=== PATIENT | female | born 1955 | race Caucasian/White ===

== ENCOUNTER 2018-08-04 19:48 | Emergency (ER) | payer OTHER ==
[~2018-08-04] VITALS: Ht 157.5 cm; Wt 122.5 kg
[2018-08-04 20:01] VITALS: BP 146/65
[2018-08-04] MEDS ORDERED: ORE25 PO (20:26)
[2018-08-04] MEDS ORDERED: BENA40TA PO (20:26)
[2018-08-04] MEDS ORDERED: GLIP10TE PO (20:26)
[2018-08-04] MEDS ORDERED: INSU100S22 SUBQ (20:26)
[2018-08-04] MEDS ORDERED: SIMV40TA1 PO (20:26)
[2018-08-04] MEDS ORDERED: OMEP20TC12 PO (20:26)
[2018-08-04] MEDS ORDERED: GABA300C PO (20:26)
[2018-08-04] MEDS ORDERED: METO100T14 PO (20:26)
[2018-08-04] MEDS ORDERED: MEX2.5 PO (20:26)
[2018-08-04] MEDS ORDERED: FURO-570 PO (20:26)
[2018-08-04] MEDS ORDERED: POTA10TE30 PO (20:26)
[2018-08-04] MEDS ORDERED: METF500T PO (20:26)
[2018-08-04] MEDS ORDERED: INSU100I3 SQ (20:26)
[2018-08-04] MEDS ORDERED: MORPHINE SULFATE 4 MG/ML SYR IVP ONE (21:20)
[2018-08-04] MEDS ORDERED: ONDANSETRON 4 MG/2 ML VIAL IVP ONE (21:20)
[2018-08-04 22:03] LABS: BASOPHILS % (AUTO) 0.3 % (0.0-2.0); EOSINOPHILS % (AUTO) 0.2 % (0.0-4.0); HEMATOCRIT 39.4 % (36-48); HEMOGLOBIN 12.7 g/dL (12.0-16.0); LYMPHOCYTES # (AUTO) 1.5 K/uL (2.5-16.5); LYMPHOCYTES % (AUTO) 11.5 % (20.5-51.1); MEAN CORPUSCULAR HEMOGLOBIN 27 pg (27-31); MEAN CORPUSCULAR HGB CONC 32 g/dL (33-37); MEAN CORPUSCULAR VOLUME 83.5 fL (80-94); MONOCYTES # (AUTO) 0.7 K/uL (0.8-1.0); MONOCYTES % (AUTO) 5.4 % (1.7-9.3); NEUTROPHILS # (AUTO) 10.6 K/uL (1.8-7.7); NEUTROPHILS % (AUTO) 82.6 % (42.2-75.2); PLATELET COUNT (AUTO) 255 K/uL (140-450); RED BLOOD CELL COUNT(AUTO) 4.72 MIL/uL (4.20-5.40); RED CELL DISTRIBUTION WIDTH 15.3 % (11.6-13.7); WHITE BLOOD COUNT (AUTO) 12.8 K/uL (4.8-10.8)
[2018-08-04 22:13] LABS: ANION GAP 9.7 (8-16); CARBON DIOXIDE 34.7 mmol/L (21-32); CREATININE 1.4 mg/dL (0.6-1.3); POTASSIUM 3.4 mmol/L (3.5-5.1)
[2018-08-04 22:19] LABS: ALBUMIN 3.3 g/dL (3.4-5.0); TOTAL BILIRUBIN 0.6 mg/dL (0.0-1.0)
[2018-08-04] MEDS ORDERED: KETOROLAC 30 MG/ML VIAL IVP ONE (23:00)
[2018-08-05 00:39] VITALS: BP 149/61
== END 2018-08-05 00:39 | disposition home or self-care (01) ==
LOC: MED 19:48
DX: M25.511 Pain in right shoulder (principal); E11.65 Type 2 diabetes mellitus with hyperglycemia; Z79.899 Other long term (current) drug therapy; Z79.84 Long term (current) use of oral hypoglycemic drugs
CPT/HCPCS: 36415; 71045; 73060; 80053; 82550; 82553; 82948; 83690; 83880; 84484; 85025; 93005; 93970; 96374; 96375; 99284; J1885; J2270; J2405; Q0092

== ENCOUNTER 2018-09-25 11:31 | Emergency (ER) | payer OTHER ==
[~2018-09-25] VITALS: Ht 154.9 cm; Wt 120.7 kg
[~2018-09-25 11:31] MED LIST: BENA40TA PO; FURO-570 PO; GABA300C PO; GLIP10TE PO; INSU100I3 SQ; INSU100S22 SUBQ; METF500T PO; METO100T14 PO; MEX2.5 PO; OMEP20TC12 PO; ORE25 PO; POTA10TE30 PO; SIMV40TA1 PO
[2018-09-25 11:53] VITALS: BP 110/64
--- NOTE | 2018-09-25 12:02 | NUR ---
PATIENT WHEELCHAIR ASSISTED TO BED 7.
--- NOTE | 2018-09-25 12:05 | NUR ---
BIB DTR WITH C/O BODY PAIN , 10/10 ACHING BODY PAIN, PT STATES" SHE IS IN ALOT OF PAIN DUE TO NOT BEING ABLE TO TAKE NAPROSYN ANYMORE BECAUSE OF KIDNEY DAMAGE. DENIES N/V/D; SKIN IS PINK/WARM/DRY; AAOX4; LUNGS CLEAR BL; HR EVEN AND REGULAR; PT DENIES ANY FEVER, CP, SOB, OR COUGH AT THIS TIME; VSS; PATIENT POSITIONED FOR COMFORT; HOB ELEVATED; BEDRAILS UP X2; BED DOWN. ER MD MADE AWARE OF PT STATUS.
[2018-09-25] MEDS ORDERED: MORPHINE SULFATE 4 MG/ML SYR IM ONE (12:10)
--- NOTE | 2018-09-25 13:30 | NUR ---
NO COMPLAINTS OR NEEDS STATED AT THIS TIME.
[2018-09-25] MEDS ORDERED: CEPHALEXIN 500 MG CAP PO ONE (15:05)
[2018-09-25 15:17] VITALS: BP 110/64
--- NOTE | 2018-09-25 15:18 | NUR ---
Patient discharged with v/s stable. Written and verbal after care instructions given and explained. Patient alert, oriented and verbalized understanding of instructions. Wheelchair assisted by daughter . All questions addressed prior to discharge. ID band removed. Patient advised to follow up with PMD. Rx of keflex, acetaminophen given. Patient educated on indication of medication including possible reaction and side effects. Opportunity to ask questions provided and answered.
== END 2018-09-25 15:18 | disposition home or self-care (01) ==
LOC: MED 11:31
DX: N39.0 Urinary tract infection, site not specified (principal); M25.551 Pain in right hip; E11.9 Type 2 diabetes mellitus without complications; I10 Essential (primary) hypertension; Z79.4 Long term (current) use of insulin; Z79.899 Other long term (current) drug therapy
CPT/HCPCS: 81002; 87086; 96372; 99283; J2270

== ENCOUNTER 2018-10-12 14:33 | Inpatient (IN) | payer OTHER ==
[~2018-10-12] VITALS: Ht 172.7 cm; Wt 90.7 kg
[2018-10-12 14:40] VITALS: BP 102/51
--- NOTE | 2018-10-12 14:42 | NUR ---
PATIENT BIBA TO BED 9
[2018-10-12] MEDS ORDERED: NACL 0.9% 500 ML IV SCH (15:02)
--- NOTE | 2018-10-12 15:02 | NUR ---
BIBA. C/O PROGRESSIVE WEAKNESS AND INCREASING BODY PAIN OVER THE LAST 2 MONTHS. LAST 2 WEEKS HAS BEEN THE WORST. FAMILY STATES SHE HAS NOT GOTTEN OUT OF BED SINCE SUNDAY. HX: DM; HTN; KIDNEY DISEASE; GOUT RX: GABPENTIN; INSULIN
[2018-10-12 15:30] LABS: BASOPHILS # (AUTO) 0.1 K/uL (0.00-0.22); BASOPHILS % (AUTO) 0.4 % (0.0-2.0); EOSINOPHILS # (AUTO) 0.1 K/uL (0-0.4); EOSINOPHILS % (AUTO) 0.4 % (0.0-4.0); HEMATOCRIT 28.3 % (36-48); HEMOGLOBIN 9.1 g/dL (12.0-16.0); LYMPHOCYTES # (AUTO) 1.2 K/uL (2.5-16.5); LYMPHOCYTES % (AUTO) 7.2 % (20.5-51.1); MEAN CORPUSCULAR HEMOGLOBIN 27 pg (27-31); MEAN CORPUSCULAR HGB CONC 32 g/dL (33-37); MEAN CORPUSCULAR VOLUME 84.4 fL (80-94); MONOCYTES # (AUTO) 1.2 K/uL (0.8-1.0); MONOCYTES % (AUTO) 7.2 % (1.7-9.3); NEUTROPHILS # (AUTO) 13.6 K/uL (1.8-7.7); NEUTROPHILS % (AUTO) 84.8 % (42.2-75.2); PLATELET COUNT (AUTO) 502 K/uL (140-450); RED BLOOD CELL COUNT(AUTO) 3.35 MIL/uL (4.20-5.40); RED CELL DISTRIBUTION WIDTH 14.7 % (11.6-13.7); WHITE BLOOD COUNT (AUTO) 16.1 K/uL (4.8-10.8)
--- NOTE | 2018-10-12 15:33 | NUR ---
PATIENT PLACED ON BED GOLD WITH ASSISTANCE OF ROBBY LEMUS.
--- NOTE | 2018-10-12 15:38 | NUR ---
PATIENT TAKEN OFF BED GOLD, NO URINE OR STOOL NOTED.
[2018-10-12] MEDS ORDERED: LEVOFLOXACIN 500 MG/D5W PREMIX 100 ML IV ONE (15:50)
--- NOTE | 2018-10-12 15:57 | NUR ---
RAD AT BEDSIDE.
[2018-10-12 16:20] LABS: PROTHROMBIN TIME 11.2 secs (10.8-13.4)
[2018-10-12 16:40] LABS: ALBUMIN 1.7 g/dL (3.4-5.0); ANION GAP 15.6 (8-16); CARBON DIOXIDE 27.6 mmol/L (21-32); CREATININE 1.7 mg/dL (0.6-1.3); POTASSIUM 4.2 mmol/L (3.5-5.1)
[2018-10-12] MEDS ORDERED: KETOROLAC 30 MG/ML VIAL IVP ONE (16:40)
--- NOTE | 2018-10-12 17:08 | NUR ---
STRAIGHT CATH PREFROMED AT BEDSIDE. PATIENT TOLERATED WELL. 450ML OF URINE COLLECTED. SENT SAMPLE TO LAB.
[2018-10-12 17:37] LABS: APPEARANCE,URINE CLEAR (CLEAR); BILIRUBIN,URINE NEGATIVE (NEGATIVE); BLOOD, URINE TRACE-I (NEGATIVE); COLOR,URINE YELLOW (YELLOW); LEUKOCYTE ESTERASE ,URINE NEGATIVE (NEGATIVE); NITRITE, URINE NEGATIVE (NEGATIVE); PH,URINE 5.5 (5.0-9.0); UGLUCOSE NEGATIVE (NEGATIVE)
[2018-10-12] MEDS ORDERED: PANTOPRAZOLE 40 MG INJ VIAL IVP ONE (17:55)
[2018-10-12] MEDS ORDERED: HYDR2TAB46 PO (18:31)
[2018-10-12] MEDS ORDERED: ALLO100T21 PO (18:31)
[2018-10-12] MEDS ORDERED: DOCU-299 PO (18:31)
[2018-10-12] MEDS ORDERED: INSU100S54 SC (18:31)
[2018-10-12] MEDS ORDERED: fentaNYL 0.05 MG/ML VIAL IVP ONE (18:40)
--- NOTE | 2018-10-12 19:15 | NUR ---
PT LYING IN BED, VSS
--- NOTE | 2018-10-12 20:50 | NUR ---
DUE MEDICATION ADMINISTER, PT TOLERATED WELL, NO DISTRESS NOTED, CALL LIGHT WITHIN REACH, WILL CONTINUE TO MONITOR. Addendum: 10/13/18 at 0319 by Arabella Landrum RN WRONG PT
[2018-10-12] MEDS ORDERED: ONDANSETRON 4 MG/2 ML VIAL IVP PRN (22:05)
--- NOTE | 2018-10-12 22:21 | NUR ---
Patient will be admitted to care of DR. NDIAYE. Admited to TELEMETRY. Will go to room 123B. Belongings list completed. Report to DIALLO ROSARIO. PT VSS
--- NOTE | 2018-10-12 22:21 | NUR ---
Pt report given to DIALLO ROSARIO. Transfer of care at this time.VSS
[2018-10-12 22:30] VITALS: BP 117/55
--- NOTE | 2018-10-12 22:30 | NUR ---
PT ARRIVED AT UNIT VIA GURNEY, REPORT RECEIVED FROM ED NURSE JOSLYN RN, PT ON ROOM AIR, NO SOB NOTED, IV TO R FA 22G PATENT, INTACT, SL, NO C/O PAIN AT THIS MOMENT, TRANSFERRED PT TO BED, TOLERATED WELL, V/S TAKEN WNL, MRSA SWAB TAKEN, ORIENT PT TO ROOM ,BED, CALL LIGHT, INITIAL ASSESSMENT DONE, ALL SAFETY PRECAUTION MET, CALL LIGHT WITHIN REACH, FAMILY AT BEDSIDE, WILL CONTINUE TO MONITOR.
[2018-10-12 23:04] LABS: PROTHROMBIN TIME 11.5 secs (10.8-13.4)
[2018-10-12] MEDS ORDERED: DEXTROSE 50% 50 ML SYR IVP PRN (23:35)
--- NOTE | 2018-10-12 23:45 | NUR ---
TALKED TO DR. PERALES REGARDING PT MEDICATIONS, STATED TO CONTINUE HOME MEDICATION COLACE, GABAPENTIN, GLIPIZIDE, METHOTREXATE, METOPROLOL, OMEPRAZOLE, SIMVASTATIN. TO RUN NS @50ML/HR, AND ONLY ONE BAG. TO ORDER LANTUS 15UNITS QHS, CHECK BLOOD GLUCOSE LEVEL ACHS AND AT 2AM, AND COVER WITH HUMALOG PER PROTOCOL, NORCO 5/325 Q8H PRN SEVERE PAIN, TOTAL CPK. WILL PUT IN ORDERS AND CONTINUE WITH ORDERS.
[2018-10-13] VITALS: BP 115/51
[2018-10-13] MEDS: NACL 0.9% 1,000 ML IV SCH ×2 (00:07→18:02)
--- NOTE | 2018-10-13 00:07 | NUR ---
IVF NS STARTED, PT TOLERATED WELL, NO DISTRESS NOTED, CALL LIGHT WITHIN REACH, WILL CONTINUE TO MONITOR.
[2018-10-13] MEDS ORDERED: PNEUMOCOCCAL VACCINE 23 MCG/0.5 ML VIAL IMVAC PRN (01:05)
[2018-10-13] MEDS ORDERED: INFLUENZA VIRUS VACCINE QUAD 0.5 ML SYR IMVAC PRN (01:05)
[2018-10-13] MEDS ORDERED: BLOOD GLUCOSE MONITORING 1 DEV DEV FS SCH ×2 (02:00→09:00)
--- NOTE | 2018-10-13 02:17 | NUR ---
CHECKED ON PT, PT SLEEPING, NO DISTRESS NOTED, CALL LIGHT WITHIN REACH, WILL CONTINUE TO MONITOR.
--- NOTE | 2018-10-13 03:40 | NUR ---
CHECKED ON PT, PT RESTING, V/S TAKEN, WNL, NO DISTRESS NOTED, CALL LIGHT WITHIN REACH, WILL CONTINUE TO MONITOR.
[2018-10-13 04:00] VITALS: BP 109/60
[2018-10-13] MEDS: BLOOD GLUCOSE MONITORING 1 DEV DEV FS SCH ×4 (05:36→21:43)
--- NOTE | 2018-10-13 07:22 | NUR ---
ENDORSED PT TO DAY SHIFT NURSE LIAM RN, PT STABLE, NO DISTRESS NOTED, CALL LIGHT WITHIN REACH
--- NOTE | 2018-10-13 07:23 | NUR ---
RECEIVED BEDSIDE REPORT FROM HISTORY PROFESSOR RN FOR CONTINUITY OF CARE. PT IN STABLE CONDITION. DENIES PAIN AND DISCOMFORT. NO S/S DISTRESS. RESPIRATIONS EVEN AND UNLABORED. HEART RHYTHM REGULAR. ACTIVE BS IN ALL QUADRANTS. ABDOMEN SOFT AND NON-DISTENDED. LLE 1+ PITTING EDEMA. SKIN INTACT. PT ON BEDREST. IV SITE PATENT AND ASYMPTOMATIC, INFUSING IVF PER MD ORDERS. PER HISTORY PROFESSOR RN, HAS ORDERED ONLY 1 BAG OF NS. ALL SAFETY PRECAUTIONS IN PLACE, WILL CONTINUE TO MONITOR. Addendum: 10/13/18 at 0857 by Maureen Landa Meng RN TEMP 100.0 F ORAL. PATIENT HAS 3 BLANKETS ON, REMOVED TWO BLANKETS.
[2018-10-13 07:49] LABS: BASOPHILS % (AUTO) 0.3 % (0.0-2.0); EOSINOPHILS # (AUTO) 0.1 K/uL (0-0.4); EOSINOPHILS % (AUTO) 0.6 % (0.0-4.0); HEMATOCRIT 26.5 % (36-48); HEMOGLOBIN 8.5 g/dL (12.0-16.0); LYMPHOCYTES # (AUTO) 1.2 K/uL (2.5-16.5); LYMPHOCYTES % (AUTO) 8.1 % (20.5-51.1); MEAN CORPUSCULAR HEMOGLOBIN 27 pg (27-31); MEAN CORPUSCULAR HGB CONC 32 g/dL (33-37); MEAN CORPUSCULAR VOLUME 85.2 fL (80-94); MONOCYTES # (AUTO) 1.2 K/uL (0.8-1.0); MONOCYTES % (AUTO) 7.8 % (1.7-9.3); NEUTROPHILS # (AUTO) 12.3 K/uL (1.8-7.7); NEUTROPHILS % (AUTO) 83.2 % (42.2-75.2); PLATELET COUNT (AUTO) 504 K/uL (140-450); RED BLOOD CELL COUNT(AUTO) 3.11 MIL/uL (4.20-5.40); RED CELL DISTRIBUTION WIDTH 14.7 % (11.6-13.7); WHITE BLOOD COUNT (AUTO) 14.7 K/uL (4.8-10.8)
[2018-10-13 08:00] VITALS: BP 124/64
[2018-10-13 08:03] LABS: ALBUMIN 1.5 g/dL (3.4-5.0); ANION GAP 13.6 (8-16); CARBON DIOXIDE 28.4 mmol/L (21-32); CREATININE 1.7 mg/dL (0.6-1.3); MAGNESIUM 2.5 mg/dL (1.8-2.4); PHOSPHORUS 4.6 mg/dL (2.5-4.9); TOTAL BILIRUBIN 0.6 mg/dL (0.0-1.0)
--- NOTE | 2018-10-13 08:10 | NUR ---
PT HAD ONE FORMED, BROWN BM. USES BEDPAN.
--- NOTE | 2018-10-13 08:29 | NUR ---
DISCUSSED POC W/ PT'S SON AT BEDSIDE. ANSWERED ALL QUESTIONS. SON VERBALIZED COMPLETE UNDERSTANDING. PER PHARMACY REQUEST, ASKED SON ABOUT METHYLTEXRATE DOSE - THE SON WILL CALL HIS SISTER AND LET ME KNOW.
[2018-10-13] MEDS: GABAPENTIN 300 MG CAP PO SCH ×2 (08:43→20:03)
[2018-10-13] MEDS: METOPROLOL SUCCINATE 50 MG TABER PO SCH (08:43)
[2018-10-13] MEDS: glipiZIDE ER 5 MG TABER PO SCH ×2 (08:43→20:03)
[2018-10-13] MEDS: DOCUSATE SODIUM 100 MG GELCAP PO SCH (08:43)
[2018-10-13] MEDS: ENOXAPARIN 30 MG/0.3 ML SYR SUBQ SCH (08:44)
[2018-10-13] MEDS ORDERED: NON-FORMULARY ITEM (Omeprazole (Omeprazole) 1 TAB) PO SCH (09:00)
[2018-10-13] MEDS ORDERED: ACETAMINOPHEN 325 MG TAB PO PRN (09:30)
--- NOTE | 2018-10-13 09:31 | NUR ---
NOTIFIED DR. NDIAYE THAT PT HAS ST DEPRESSION ON TELE AND ASKED FOR ORDER FOR TYLENOL- PT HAD TEMP 100.0F ORAL.
[2018-10-13] MEDS: HYDROcodone/APAP 5/325 MG 1 TAB TAB PO PRN ×2 (10:37→19:36)
[2018-10-13] MEDS: INSULIN LISPRO SLIDING SCALE 100 UNITS/ML VIAL SUBQ PRN ×2 (11:29→17:08)
[2018-10-13 12:00] VITALS: BP 129/55
--- NOTE | 2018-10-13 14:19 | NUR ---
PATIENT STATES LEFT KNEE HURTS AND WANTS PAIN MEDICATION. NORCO NOT DUE YET. CHANGED PT'S POSITION IN BED AND PT STATES PAIN SUBSIDED WITH THE POSITION CHANGE. PT WILL NOTIFY ME IF PAIN COMES BACK/PERSISTS. FAMILY MEMBER AT BEDSIDE TO TRANSLATE, PER PT WISHES.
--- NOTE | 2018-10-13 14:57 | NUR ---
CLARIFIED METHOTREXATE DOSE TO PHARMACY- INFO OBTAINED FROM DAUGHTER AT BEDSIDE.
[2018-10-13 16:00] VITALS: BP 118/59
[2018-10-13] MEDS ORDERED: METHOTREXATE 2.5 MG TAB PO SCH (16:00)
--- NOTE | 2018-10-13 19:25 | NUR ---
ENDORSED POC TO RUBBER GOODS TESTER RN. PT IN STABLE CONDITION.
--- NOTE | 2018-10-13 19:30 | NUR ---
RECEIVED REPORT FROM DAYSHIFT NURSE AT BEDSIDE FOR CONTINUITY OF CARE. PT AAOX3. NO SOB NO S/S OF DISTRESS ON RA. PT IV NOTED LFA 22G NS 50ML/HR. BED LOWERED CALL LIGHT WITHIN REACH WILL CONTINUE TO MONITOR.
[2018-10-13 20:00] VITALS: BP 121/57
[2018-10-13] MEDS: predniSONE 10 MG TAB PO SCH (20:04)
[2018-10-13] MEDS: INSULIN LANTUS 100 UNITS/ML 10 ML VIAL SUBQ SCH (20:04)
[2018-10-13] MEDS ORDERED: INSULIN LANTUS 100 UNITS/ML 10 ML VIAL SUBQ SCH (21:00)
[2018-10-13] MEDS ORDERED: SIMVASTATIN 40 MG TAB PO SCH (21:00)
[2018-10-14] VITALS: BP 117/57
[2018-10-14] MEDS: BLOOD GLUCOSE MONITORING 1 DEV DEV FS SCH ×5 (02:00→20:40)
[2018-10-14 04:00] VITALS: BP 136/68
[2018-10-14] MEDS: PANTOPRAZOLE 40 MG TABEC PO SCH (05:32)
--- NOTE | 2018-10-14 07:10 | NUR ---
RECEIVED BEDSIDE REPORT FROM IT APPLICATIONS MANAGER RN FOR CONTINUITY OF CARE. PT IS AAOX4. PAIN TOLERABLE, PT STATED JUST A LITTLE. NO S/S DISTRESS NOTED ON RM AIR. LLE 1+ PITTING EDEMA. SKIN INTACT. PT ON BEDREST. IV SITE TO RIGHT FA, 22G, PATENT AND INTACT, ASYMPTOMATIC. ALL SAFETY PRECAUTIONS IN PLACE, WILL CONTINUE TO MONITOR.
--- NOTE | 2018-10-14 07:25 | NUR ---
ENDORSED REPORT TO [facility] DAYSHIFT NURSE AT BEDSIDE FOR CONTINUITY OF CARE.
[2018-10-14 07:50] LABS: BASOPHILS % (AUTO) 0.1 % (0.0-2.0); EOSINOPHILS % (AUTO) 0.2 % (0.0-4.0); HEMATOCRIT 26.9 % (36-48); HEMOGLOBIN 8.5 g/dL (12.0-16.0); LYMPHOCYTES # (AUTO) 1.4 K/uL (2.5-16.5); LYMPHOCYTES % (AUTO) 9.6 % (20.5-51.1); MEAN CORPUSCULAR HEMOGLOBIN 27 pg (27-31); MEAN CORPUSCULAR HGB CONC 32 g/dL (33-37); MEAN CORPUSCULAR VOLUME 85.2 fL (80-94); MONOCYTES # (AUTO) 0.9 K/uL (0.8-1.0); MONOCYTES % (AUTO) 6.1 % (1.7-9.3); NEUTROPHILS # (AUTO) 11.8 K/uL (1.8-7.7); PLATELET COUNT (AUTO) 571 K/uL (140-450); RED BLOOD CELL COUNT(AUTO) 3.16 MIL/uL (4.20-5.40); RED CELL DISTRIBUTION WIDTH 14.3 % (11.6-13.7); WHITE BLOOD COUNT (AUTO) 14.1 K/uL (4.8-10.8)
[2018-10-14 08:00] VITALS: BP 141/60
[2018-10-14 08:03] LABS: URIC ACID 10.6 mg/dL (2.6-7.2)
[2018-10-14 08:06] LABS: ALBUMIN 1.5 g/dL (3.4-5.0); ANION GAP 12.1 (8-16); CARBON DIOXIDE 28.7 mmol/L (21-32); CREATININE 1.2 mg/dL (0.6-1.3); POTASSIUM 3.8 mmol/L (3.5-5.1); TOTAL BILIRUBIN 0.5 mg/dL (0.0-1.0)
[2018-10-14] MEDS ORDERED: glipiZIDE 10 MG TAB PO SCH (08:17)
--- NOTE | 2018-10-14 08:30 | NUR ---
PATIENT HAS BEEN SCREENED AND CATEGORIZED HIGH NUTRITION RISK. PATIENT WILL BE SEEN WITHIN 1-2 DAYS OF ADMISSION. 10/14/[address]
[2018-10-14 09:01] LABS: THYROID STIMULATING HORMONE 1.75 uIU/mL (0.34-3.74)
[2018-10-14] MEDS: predniSONE 10 MG TAB PO SCH ×2 (09:17→20:39)
[2018-10-14] MEDS: METOPROLOL SUCCINATE 50 MG TABER PO SCH (09:18)
[2018-10-14] MEDS: ALLOPURINOL 100 MG TAB PO SCH (09:18)
[2018-10-14] MEDS: GABAPENTIN 300 MG CAP PO SCH ×2 (09:18→20:39)
[2018-10-14] MEDS: DOCUSATE SODIUM 100 MG GELCAP PO SCH (09:18)
[2018-10-14] MEDS ORDERED: PRED10TA5 PO (09:21)
[2018-10-14] MEDS ORDERED: ACET-9525 PO (09:21)
[2018-10-14] MEDS: ENOXAPARIN 30 MG/0.3 ML SYR SUBQ SCH (09:27)
--- NOTE | 2018-10-14 09:55 | NUR ---
PT WORKED WITH PHYSICAL THERAPIST, WILL F/U WITH THERAPIST'S RECOMMENDATIONS.
[2018-10-14] MEDS: HYDROcodone/APAP 5/325 MG 1 TAB TAB PO PRN (09:58)
--- NOTE | 2018-10-14 10:05 | NUR ---
RIGHT FA IV CATH, A SMALL BUMP IS NOTED, APPEARS TO BE INFILTRATED. PT DOES NOT C/O PAIN AT THE SITE. DC'D IV CATH, TIP INTACT. PRESSURE APPLIED.
[2018-10-14 12:00] VITALS: BP 139/61
--- NOTE | 2018-10-14 12:30 | NUR ---
ASSISTED PT WITH LUNCH, PT ATE WELL. NO S/S OF ANY DISTRESS NOTED.
[2018-10-14] MEDS: NACL 0.9% 1,000 ML IV SCH (14:13)
--- NOTE | 2018-10-14 14:25 | NUR ---
CM NOTE RECEIVED 'S ORDER STATING THAT THE PATIENT'S FAMILY WANTS RESOURCES REGARDING GETTING A CAREGIVER AT HOME. SPOKE WITH THE PATIENT'S SON, PERSON TO NOTIFY CYNDY HUMPHREYS # [phone], WHO STATED THAT HE IS CURRENTLY AT WORK AND HE REQUESTED TO CALL HIS SISTER INES HUMPHREYS # [phone] TO INTERACTIVE MEDIA MARKETING STRATEGIST THE COMM[employer]ITY RESOURCE LIST FOR HOME CARE. I MET WITH INES HUMPHREYS, THE PATIENT'S DAUGHTER, BEDSIDE. I OFFERED INES THE [employer]ITY RESOURCE LIST FOR HOME CARE WHICH SHE ACCEPTED GRACIOUSLY.
--- NOTE | 2018-10-14 15:06 | NUR ---
10/14/18 RD INITIAL ASSESSMENT COMPLETED PLEASE REFER TO NUTRITION ASSESSMENT UNDER CARE ACTIVITY FOR ESTIMATED NUTRITIONAL NEEDS. 1. RECOMMEND RENAL AND CCHO 60 GM DIET 2. RECOMMEND NEPRO QD 3. RD TO FOLLOW UP ON RENAL AND CCHO DIET EDUCATION 4. RD TO FOLLOW-UP 3-5 DAYS, MODERATE RISK SANTI HUMPHREYS, RD
[2018-10-14 15:11] LABS: HEPATITIS A ANTIBODY IGM Negative (Negative); HEPATITIS B SURFACE ANTIBODY Non Reactive (.); HEPATITIS B SURFACE ANTIGEN Negative (Negative)
[2018-10-14 16:00] VITALS: BP 148/66
[2018-10-14] MEDS: glipiZIDE 10 MG TAB PO SCH (17:07)
--- NOTE | 2018-10-14 17:13 | NUR ---
PT HAD BM IN BEDPAN, FORMED, YELLOW AND SOFT. ASSISTED PT FOR TURNING AND CLEANING. PT TOLERATED FAIR.
[2018-10-14] MEDS: INSULIN LISPRO SLIDING SCALE 100 UNITS/ML VIAL SUBQ PRN ×2 (17:18→20:46)
--- NOTE | 2018-10-14 19:35 | NUR ---
ENDORSED PT TO MARINE TECHNICIAN RN AT BEDSIDE FOR CONTINUITY OF CARE. PT IN STABLE CONDITION.
--- NOTE | 2018-10-14 19:36 | NUR ---
RECEIVED REPORT FROM DAY SHIFT NURSE KALEIGH-RN AT BEDSIDE. PT RESTING IN BED, AOX4- GREEK SPEAKING, ON ROOM AIR WITH RIGHT HAND #22G RUNNING NS @ 50ML, USES BEDPAN. DISCUSSED PLAN OF CARE AND PT VERBALIZED UNDERSTANDING. NO S/S OF RESPIRATORY DISTRESS OR DISCOMFORT NOTED AT THIS TIME. BED IN LOWEST POSITION, BED BREAKS ON, BOTH SIDE RAILS UP AND FALL PRECAUTIONS IN PLACE. BEDSIDE TABLE AND CALL LIGHT ARE WITHIN REACH. WILL CONTINUE TO MONITOR.
[2018-10-14 20:00] VITALS: BP 135/48
--- NOTE | 2018-10-14 20:00 | NUR ---
VITAL SIGNS TAKEN AND TOLERATED WELL. BLOOD GLUCOSE 420- WILL CALL MD FOR ORDERS. NO S/S OF RESPIRATORY DISTRESS OR DISCOMFORT NOTED AT THIS TIME. WILL CONTINUE TO MONITOR.
--- NOTE | 2018-10-14 20:40 | NUR ---
DR. REYNOSO ON-CALL FOR DR. NDIAYE. RECEIVED ORDERS TO GIVEN 16 UNITS OF HUMALOG.
--- NOTE | 2018-10-14 20:45 | NUR ---
SCHEDULED MEDICATIONS GIVEN AND INSULIN COVERAGE GIVEN AND TOLERATED WELL. NO S/S OF RESPIRATORY DISTRESS OR DISCOMFORT NOTED AT THIS TIME. WILL CONTINUE TO MONITOR.
[2018-10-14] MEDS: INSULIN LANTUS 100 UNITS/ML 10 ML VIAL SUBQ SCH (20:46)
--- NOTE | 2018-10-14 22:00 | NUR ---
PT SLEEPING AT THIS TIME. NO S/S OF RESPIRATORY DISTRESS OR DISCOMFORT NOTED AT THIS TIME. WILL CONTINUE TO MONITOR.
[2018-10-15] VITALS: BP 145/67
--- NOTE | 2018-10-15 | NUR ---
VITAL SIGNS TAKEN AND TOLERATED WELL. NO S/S OF RESPIRATORY DISTRESS OR DISCOMFORT NOTED AT THIS TIME. WILL CONTINUE TO MONITOR.
[2018-10-15] MEDS: BLOOD GLUCOSE MONITORING 1 DEV DEV FS SCH ×3 (01:55→12:17)
[2018-10-15] MEDS: INSULIN LISPRO SLIDING SCALE 100 UNITS/ML VIAL SUBQ PRN ×3 (02:00→12:19)
--- NOTE | 2018-10-15 02:00 | NUR ---
BLOOD GLUCOSE 296- INSULIN COVERAGE GIVEN AND TOLERATED WELL. NO S/S OF RESPIRATORY DISTRESS OR DISCOMFORT NOTED AT THIS TIME. WILL CONTINUE TO MONITOR.
[2018-10-15 04:00] VITALS: BP 143/59
--- NOTE | 2018-10-15 04:00 | NUR ---
VITAL SIGNS TAKEN AND TOLERATED WELL. NO S/S OF RESPIRATORY DISTRESS OR DISCOMFORT NOTED AT THIS TIME. WILL CONTINUE TO MONITOR.
[2018-10-15] MEDS: NACL 0.9% 1,000 ML IV SCH (05:33)
--- NOTE | 2018-10-15 06:00 | NUR ---
PT CONTINUES TO SLEEP IN BED. NO S/S OF RESPIRATORY DISTRESS OR DISCOMFORT NOTED AT THIS TIME. WILL CONTINUE TO MONITOR.
[2018-10-15 06:17] LABS: BASOPHILS % (AUTO) 0.1 % (0.0-2.0); EOSINOPHILS % (AUTO) 0.3 % (0.0-4.0); HEMATOCRIT 27.9 % (36-48); HEMOGLOBIN 8.8 g/dL (12.0-16.0); LYMPHOCYTES % (AUTO) 9.9 % (20.5-51.1); MEAN CORPUSCULAR HEMOGLOBIN 27 pg (27-31); MEAN CORPUSCULAR HGB CONC 32 g/dL (33-37); MEAN CORPUSCULAR VOLUME 85.1 fL (80-94); MONOCYTES # (AUTO) 0.4 K/uL (0.8-1.0); MONOCYTES % (AUTO) 4.5 % (1.7-9.3); NEUTROPHILS # (AUTO) 8.4 K/uL (1.8-7.7); NEUTROPHILS % (AUTO) 85.2 % (42.2-75.2); PLATELET COUNT (AUTO) 577 K/uL (140-450); RED BLOOD CELL COUNT(AUTO) 3.28 MIL/uL (4.20-5.40); RED CELL DISTRIBUTION WIDTH 14.7 % (11.6-13.7); WHITE BLOOD COUNT (AUTO) 9.8 K/uL (4.8-10.8)
[2018-10-15 06:36] LABS: ALBUMIN 1.4 g/dL (3.4-5.0); ANION GAP 13.8 (8-16); CARBON DIOXIDE 26.7 mmol/L (21-32); POTASSIUM 4.5 mmol/L (3.5-5.1); TOTAL BILIRUBIN 0.3 mg/dL (0.0-1.0)
[2018-10-15] MEDS: glipiZIDE 10 MG TAB PO SCH (06:56)
[2018-10-15] MEDS: PANTOPRAZOLE 40 MG TABEC PO SCH (06:57)
--- NOTE | 2018-10-15 06:57 | NUR ---
BLOOD GLUCOSE 252- INSULIN COVERAGE GIVEN. SCHEDULED MEDICATION GIVEN. PT TOLERATED WELL. NO S/S OF RESPIRATORY DISTRESS OR DISCOMFORT NOTED AT THIS TIME. WILL CONTINUE TO MONITOR.
--- NOTE | 2018-10-15 07:20 | NUR ---
RECEIVED BEDSIDE REPORT FROM SOLAR BUSINESS DEVELOPER RN FOR CONTINUITY OF CARE. PT IS AAOX4. PAIN TOLERABLE, PT STATED JUST A LITTLE. NO S/S DISTRESS NOTED ON RM AIR. LLE 1+ PITTING EDEMA. SKIN INTACT. PT ON BEDREST. IV SITE TO RIGHT HAND, 22G, PATENT AND INTACT, ASYMPTOMATIC. ALL SAFETY PRECAUTIONS IN PLACE, WILL CONTINUE TO MONITOR.
--- NOTE | 2018-10-15 07:27 | NUR ---
ENDORSED PT CARE TO DAY SHIFT NURSE BELKYS FOR CONTINUITY OF CARE.
[2018-10-15 08:00] VITALS: BP 137/64
[2018-10-15] MEDS: predniSONE 10 MG TAB PO SCH (08:34)
[2018-10-15] MEDS: METOPROLOL SUCCINATE 50 MG TABER PO SCH (08:34)
[2018-10-15] MEDS: ALLOPURINOL 100 MG TAB PO SCH (08:34)
[2018-10-15] MEDS: DOCUSATE SODIUM 100 MG GELCAP PO SCH (08:35)
[2018-10-15] MEDS: GABAPENTIN 300 MG CAP PO SCH (08:35)
[2018-10-15] MEDS: ENOXAPARIN 30 MG/0.3 ML SYR SUBQ SCH (08:41)
[2018-10-15] MEDS ORDERED: PRED10TA5 PO (09:38)
--- NOTE | 2018-10-15 10:25 | NUR ---
PT WORKED WITH PHYSICAL THERAPIST. ACCORDING TO PT'S DAUGHTER, PT MADE A LITTLE IMPROVEMENT FROM YESTERDAY.
[2018-10-15 12:00] VITALS: BP 148/68
[2018-10-15] MEDS ORDERED: INTERDRY CLOTH TP SCH (13:00)
--- NOTE | 2018-10-15 13:15 | NUR ---
PIC TAKEN FOR ABD FOLD, HAS SOME MOISTURE RELATED ISSUE. APPLIED INTERDRY.
--- NOTE | 2018-10-15 13:21 | NUR ---
CM NOTE I SPOKE WITH THE PATIENT BEDSIDE, WITH THE PATIENT'S DAUGHTER SPARKLE TRANSLATING. PER PATIENT AND PATIENT'S DAUGHTER SPARKLE, THEY HAVE NO SNF PREFERENCE. FAXED ORDER FOR SNF AND PT EVAL NOTES TO [facility]. PER [facility] MIGUEL WHEELER PH# [phone], SEND INQUIRY TO [facility] [place], [facility], [facility] PER MIGUEL WHEELER, USE [employer] PH# [phone], AUTH# [id number]. PER MONTY OF [facility], NO FEMALE BED AVAILABLE. PER MANOJ OF [facility], NO BED AVAILABLE AT THIS TIME. FAXED CLINICAL PACKET TO [facility]. PER RAJAN OF [facility], THE PATIENT CAN GO TO 14A TODAY. THE NUMBER TO CALL FOR REPORT [phone]. PER TITA OF [employer] PH# [phone], THE PATIENT WILL BE PICKED UP BETWEEN 1600 AND 1700 TIME TODAY BY TEDDY GOING TO [facility], CALL REF# [id number]. I INFORMED THE PATIENT'S PERSON TO NOTIFY, PATIENT'S SON, CYNDY HUMPHREYS PH# [phone]. CHARGE NURSE TRAY ROSARIO AWARE. Addendum: 10/15/18 at 1406 by Kari Linton PER [facility] MIGUEL WHEELER, THE ACCEPTING IN [facility] IS DR. WALL AND FOR [facility] AUTH# [id number].
--- NOTE | 2018-10-15 16:21 | NUR ---
REPORT GIVEN TO ABRAHAM GOMEZ AT [facility].
--- NOTE | 2018-10-15 17:00 | NUR ---
DISCHARGE INSTRUCTION AND MED TEACHING GIVEN TO PT AND HER DAUGHTER, OFFERED ADVERTISER PHONE, PT PREFERRED HER DAUGHTER TO TRANSLATE. PT VERBALIZED UNDERSTANDING. PT'S DAUGHTER SIGNED DC PAPER. PT IN AGREEMENT. DC'D IV CATH, TIP INTACT, PRESSURE APPLIED. PT LEFT WITH [facility]. Addendum: 10/15/18 at 175 by Khoi Myers RN TELE BOX REMOVED. Addendum: 10/15/18 at 175 by Khoi Myers RN WRIST BAND REMOVED.
[2018-10-16] MEDS ORDERED: predniSONE 10 MG TAB PO SCH (09:00)
[2018-10-17 15:31] LABS: HEPATITIS B CORE AB TOTAL POSITIVE (NEGATIVE)
[2018-10-19] MEDS ORDERED: METHOTREXATE 2.5 MG TAB PO SCH (17:00)
== END 2018-10-15 17:00 | DRG 682 ==
LOC: MED 14:33 → UNDOADMOB 22:16 → OBSVTOIN 22:16 → INTOOBSV 22:16 → MTU 22:16 → OBSVTOIN 10-13 10:21 → MTU 10-13 10:21
PROVIDERS: ADMIT Internal Medicine; ATTEND Internal Medicine
PROC: 3E02340 Introduction of Influenza Vaccine into Muscle, Percutaneous Approach (ICD-10-PCS; principal; 2018-10-13)
PROC: 3E0234Z Introduction of Serum, Toxoid and Vaccine into Muscle, Percutaneous Approach (ICD-10-PCS; 2018-10-13)
DX: N17.0 Acute kidney failure with tubular necrosis (principal); E43 Unspecified severe protein-calorie malnutrition; R65.10 Systemic inflammatory response syndrome (SIRS) of non-infectious origin without acute organ dysfunction; E87.1 Hypo-osmolality and hyponatremia; E11.22 Type 2 diabetes mellitus with diabetic chronic kidney disease; I12.9 Hypertensive chronic kidney disease with stage 1 through stage 4 chronic kidney disease, or unspecified chronic kidney disease; N18.9 Chronic kidney disease, unspecified; Z68.30 Body mass index [BMI] 30.0-30.9, adult; M81.0 Age-related osteoporosis without current pathological fracture; M06.9 Rheumatoid arthritis, unspecified; E87.8 Other disorders of electrolyte and fluid balance, not elsewhere classified; E86.0 Dehydration; E78.5 Hyperlipidemia, unspecified; E66.01 Morbid (severe) obesity due to excess calories; D63.8 Anemia in other chronic diseases classified elsewhere; K80.20 Calculus of gallbladder without cholecystitis without obstruction; Z79.899 Other long term (current) drug therapy; Z79.84 Long term (current) use of oral hypoglycemic drugs; Z79.4 Long term (current) use of insulin; Z83.3 Family history of diabetes mellitus; Z84.1 Family history of disorders of kidney and ureter; Z23 Encounter for immunization
CPT/HCPCS: 36415; 71045; 76705; 76770; 80053; 81003; 82550; 82553; 82607; 82746; 82948; 83036; 83540; 83605; 83735; 83880; 84100; 84443; 84484; 84550; 85025; 85610; 85730; 86430; 86704; 86706; 86708; 86709; 86803; 87040; 87081; 87086; 87340; 90732; 93005; 96375; 97110; 97530; 99285; C1758; C9113; G0480; J0696; J1650; J1815; J1885; J1956; J3010; J7030; J7060; J7512; J8610; Q0092

== ENCOUNTER 2018-11-23 21:42 | Emergency (ER) | payer OTHER ==
[~2018-11-23] VITALS: Ht 160 cm; Wt 112.9 kg
[~2018-11-23 21:42] MED LIST changes: +ACET-9525 PO; +ALLO100T21 PO; -BENA40TA PO; +DOCU-299 PO; -FURO-570 PO; +INSU100S54 SC; -METF500T PO; -ORE25 PO; -POTA10TE30 PO; +PRED10TA5 PO; -SIMV40TA1 PO
--- NOTE | 2018-11-23 21:42 | NUR ---
PT [facility]O BLS. TAKEN TO BED 2
[2018-11-23 21:54] VITALS: BP 174/82
--- NOTE | 2018-11-23 22:00 | NUR ---
BIBA WITH C/O BILATERAL LEG PAIN 05/29. CMS INTACT, EDEMA TO BLE. HX CELLUTLITIS IN LEGS STATES THE PAIN FEELS THE SAME BEFORE. REPORTED BS 69 ON SCENE D10 GIVEN BY EMS, BS UPON ARRIVAL 153. BED IN LOW LOCKED POSITION. BED RAILS UP X2. ERMD MADE AWARE OF STATUS.
--- NOTE | 2018-11-23 22:10 | NUR ---
DAUGHTER AT BEDSIDE.
[2018-11-23] MEDS ORDERED: NACL 0.9% 500 ML IV SCH (22:53)
--- NOTE | 2018-11-23 23:16 | NUR ---
XRAY AT BEDSIDE.
[2018-11-23 23:37] LABS: BASOPHILS % (AUTO) 0.3 % (0.0-2.0); EOSINOPHILS # (AUTO) 0.1 K/uL (0-0.4); EOSINOPHILS % (AUTO) 0.5 % (0.0-4.0); HEMATOCRIT 34.3 % (36-48); HEMOGLOBIN 10.9 g/dL (12.0-16.0); LYMPHOCYTES # (AUTO) 1.5 K/uL (2.5-16.5); LYMPHOCYTES % (AUTO) 13.6 % (20.5-51.1); MEAN CORPUSCULAR HEMOGLOBIN 26 pg (27-31); MEAN CORPUSCULAR HGB CONC 32 g/dL (33-37); MEAN CORPUSCULAR VOLUME 82.4 fL (80-94); MONOCYTES # (AUTO) 0.9 K/uL (0.8-1.0); MONOCYTES % (AUTO) 8.6 % (1.7-9.3); NEUTROPHILS # (AUTO) 8.4 K/uL (1.8-7.7); PLATELET COUNT (AUTO) 367 K/uL (140-450); RED BLOOD CELL COUNT(AUTO) 4.16 MIL/uL (4.20-5.40); RED CELL DISTRIBUTION WIDTH 18.2 % (11.6-13.7); WHITE BLOOD COUNT (AUTO) 10.9 K/uL (4.8-10.8)
--- NOTE | 2018-11-23 23:40 | NUR ---
STRAIGHT CATH PREFORMED USING STERILE TECHNIQUE. PATIENT TOLERATED WELL, URINE SAMPLE AWAITING LAB EXHAUST EMISSIONS AUTOMOTIVE TECHNICIAN.
[2018-11-23] MEDS ORDERED: CLINDAMYCIN 900 MG in DEXTROSE 5% 100 ML IV ONE (23:50)
[2018-11-24] MEDS ORDERED: CLINDAMYCIN 900 MG/6 ML VIAL IV ONE (00:03)
[2018-11-24 00:06] LABS: ANION GAP 11.4 (8-16); CARBON DIOXIDE 27.3 mmol/L (21-32); CREATININE 0.7 mg/dL (0.6-1.3); POTASSIUM 3.7 mmol/L (3.5-5.1); TOTAL BILIRUBIN 0.6 mg/dL (0.0-1.0)
--- NOTE | 2018-11-24 00:55 | NUR ---
ETA for medicinal plant picker 60 minutes
--- NOTE | 2018-11-24 02:04 | NUR ---
PATIENT STATES SHE IS FEELING WARM, TEMP AT 100.7. COOLING MEASURES TAKEN. DR HANSEN MADE AWARE.
[2018-11-24 02:27] LABS: APPEARANCE,URINE CLOUDY (CLEAR); BILIRUBIN,URINE NEGATIVE (NEGATIVE); BLOOD, URINE NEGATIVE (NEGATIVE); COLOR,URINE YELLOW (YELLOW); LEUKOCYTE ESTERASE ,URINE 1+ (NEGATIVE); NITRITE, URINE POSITIVE (NEGATIVE); UGLUCOSE NEGATIVE (NEGATIVE)
--- NOTE | 2018-11-24 02:34 | NUR ---
[facility] AT BEDSIDE.
[2018-11-24 02:36] LABS: RBC,URINE 0-5 /HPF (0-5); WBC,URINE 20-60 /HPF (0-5)
[2018-11-24 02:42] VITALS: BP 168/78
--- NOTE | 2018-11-24 02:44 | NUR ---
Patient discharged with v/s stable. Written and verbal after care instructions given and explained. Patient alert, oriented and verbalized understanding of instructions. Picked up for gurney Transport by [facility]. All questions addressed prior to discharge. ID band removed. Patient advised to follow up with PMD. Rx of bactrim, tramadol, motrin given. Patient educated on indication of medication including possible reaction and side effects. Opportunity to ask questions provided and answered.
== END 2018-11-24 02:44 | disposition home or self-care (01) ==
LOC: MED 21:42
DX: L03.116 Cellulitis of left lower limb (principal); L03.115 Cellulitis of right lower limb; E11.9 Type 2 diabetes mellitus without complications; I10 Essential (primary) hypertension; N28.9 Disorder of kidney and ureter, unspecified; E78.5 Hyperlipidemia, unspecified; Z79.4 Long term (current) use of insulin; Z79.891 Long term (current) use of opiate analgesic; Z79.899 Other long term (current) drug therapy
CPT/HCPCS: 36415; 71045; 80053; 81001; 83605; 83880; 84484; 85025; 87040; 87086; 96365; 99284; J3490; J7030; Q0092; 87186

== ENCOUNTER 2020-11-24 16:46 | Emergency (ER) | payer OTHER, MEDICAID ==
[~2020-11-24] VITALS: Ht 157.5 cm; Wt 127.0 kg
[2020-11-24 16:54] VITALS: BP 154/54
--- NOTE | 2020-11-24 16:55 | NUR ---
Patient assisted to bed 02 via wheelchair.
[2020-11-24] MEDS ORDERED: MECLIZINE 25 MG TAB PO ONE (17:30)
--- NOTE | 2020-11-24 17:30 | NUR ---
65 y/o F coming in from home by daughter with c/c dizziness. Patient presents in wheelchair, A&Ox4, Nigerian speaking only. Daughter in [facility] states she was contacted by mother at 1400 with complaint of nausea and dizziness. Per daughter, patient has been having symptoms since 0700 and states she feels dizziness when standing up. Daughter states no other medical complaints. cash poster in place. Bed locked in lowest position, side rails x 2, call light in reach. PMH: kidney failure x 2 years ago, HDl, DM, HTn Meds: Losartan, insulin (unknown by daughter/mother), lasix, lipitor, metoprolol, febuxostat NKA Sx: Denies
--- NOTE | 2020-11-24 17:30 | NUR ---
Dr. Gant is speaking with patient's daughter in lobby.
[2020-11-24] MEDS ORDERED: ONDANSETRON 4 MG ODT PO ONE (17:35)
--- NOTE | 2020-11-24 17:43 | NUR ---
Lab at bedside
--- NOTE | 2020-11-24 17:45 | NUR ---
Patient states she is unable to provide urine at this time.
[2020-11-24 17:55] LABS: BASOPHILS % (AUTO) 0.5 % (0.0-2.0); EOSINOPHILS # (AUTO) 0.1 K/uL (0-0.4); EOSINOPHILS % (AUTO) 0.9 % (0.0-4.0); HEMATOCRIT 41.5 % (36-48); HEMOGLOBIN 13.6 g/dL (12.0-16.0); LYMPHOCYTES # (AUTO) 1.9 K/uL (2.5-16.5); LYMPHOCYTES % (AUTO) 24.4 % (20.5-51.1); MEAN CORPUSCULAR HEMOGLOBIN 29 pg (27-31); MEAN CORPUSCULAR HGB CONC 33 g/dL (33-37); MEAN CORPUSCULAR VOLUME 88.2 fL (80-94); MONOCYTES # (AUTO) 0.5 K/uL (0.8-1.0); MONOCYTES % (AUTO) 5.9 % (1.7-9.3); NEUTROPHILS # (AUTO) 5.3 K/uL (1.8-7.7); NEUTROPHILS % (AUTO) 68.3 % (42.2-75.2); PLATELET COUNT (AUTO) 256 K/uL (140-450); RED BLOOD CELL COUNT(AUTO) 4.71 MIL/uL (4.20-5.40); RED CELL DISTRIBUTION WIDTH 14.2 % (11.6-13.7); WHITE BLOOD COUNT (AUTO) 7.7 K/uL (4.8-10.8)
--- NOTE | 2020-11-24 18:00 | NUR ---
Patient states no nausea at this time, positive relief with medication.
--- NOTE | 2020-11-24 18:52 | NUR ---
Patient assisted to restroom via wheelchair for urine sample.
[2020-11-24 19:06] LABS: BILIRUBIN,URINE NEGATIVE (NEGATIVE); BLOOD, URINE NEGATIVE (NEGATIVE); COLOR,URINE YELLOW (YELLOW); LEUKOCYTE ESTERASE ,URINE 1+ (NEGATIVE); NITRITE, URINE NEGATIVE (NEGATIVE); PH,URINE 6.5 (5.0-9.0); UGLUCOSE NEGATIVE (NEGATIVE)
--- NOTE | 2020-11-24 19:15 | NUR ---
Report and transfer of care given to ABRAHAM Gandhi.
[2020-11-24 19:25] LABS: APPEARANCE,URINE HAZY (CLEAR)
[2020-11-24 19:27] LABS: RBC,URINE NONE SEEN /HPF (0-5); WBC,URINE 0-5 /HPF (0-5)
--- NOTE | 2020-11-24 19:30 | NUR ---
RESTING IN BED WITH EYES OPEN. RESPIRATIONS REGULAR RND UNLABORED. PT STATES SHE IS FEELING BETTER NOW.
[2020-11-24] MEDS ORDERED: MECL-303 PO (19:42)
[2020-11-24] MEDS ORDERED: NITR100C7 PO (19:42)
[2020-11-24 20:24] VITALS: BP 137/47
--- NOTE | 2020-11-24 20:24 | NUR ---
Patient discharged with v/s stable. Written and verbal after care instructions given and explained. Patient alert, oriented and verbalized understanding of instructions. Wheel Chair Assisted with to home. All questions addressed prior to discharge. ID band removed. Patient advised to follow up with PMD. Rx of ANTIVERT, MACROBID given. Patient educated on indication of medication including possible reaction and side effects. Opportunity to ask questions provided and answered.
== END 2020-11-24 20:24 | disposition home or self-care (01) ==
LOC: MED 16:46
DX: R42 Dizziness and giddiness (principal); R11.2 Nausea with vomiting, unspecified; E11.9 Type 2 diabetes mellitus without complications; I10 Essential (primary) hypertension; E78.5 Hyperlipidemia, unspecified; Z79.4 Long term (current) use of insulin; Z79.899 Other long term (current) drug therapy; Z98.890 Other specified postprocedural states
CPT/HCPCS: 36415; 70450; 80048; 81001; 84484; 85025; 87086; 93005; 99285; J8597; Q0162

== ENCOUNTER 2022-02-13 12:43 | Emergency (ER) | payer OTHER, MEDICAID ==
[~2022-02-13] VITALS: Ht 154.9 cm; Wt 115.8 kg
[~2022-02-13 12:43] MED LIST changes: +MECL-303 PO; +NITR100C7 PO; +OMEP-278 PO; -OMEP20TC12 PO
[2022-02-13 13:29] VITALS: BP 178/85
--- NOTE | 2022-02-13 13:34 | NUR ---
PT TO [facility] VIA W/C WITH FAMILY
[2022-02-13] MEDS ORDERED: ACET-8386 PO (15:23)
[2022-02-13] MEDS ORDERED: IBUP-2213 PO (15:23)
[2022-02-13 15:28] VITALS: BP 167/80
--- NOTE | 2022-02-13 15:28 | NUR ---
NO NURSING CARE RENDERED-Patient discharged with v/s stable. Written and verbal after care instructions given and explained. Patient alert, oriented and verbalized understanding of instructions. Ambulatory with steady gait. All questions addressed prior to discharge. ID band removed. Patient advised to follow up with PMD. Rx of NORCO given. Patient educated on indication of medication including possible reaction and side effects. Opportunity to ask questions provided and answered.
== END 2022-02-13 15:28 | disposition home or self-care (01) ==
LOC: MED 12:43
DX: S80.02XA Contusion of left knee, initial encounter (principal); M25.572 Pain in left ankle and joints of left foot; N19 Unspecified kidney failure; E11.9 Type 2 diabetes mellitus without complications; I10 Essential (primary) hypertension; E78.5 Hyperlipidemia, unspecified; Z79.899 Other long term (current) drug therapy; Z79.2 Long term (current) use of antibiotics; Z79.891 Long term (current) use of opiate analgesic; Z79.4 Long term (current) use of insulin; W18.2XXA Fall in (into) shower or empty bathtub, initial encounter; Y92.89 Other specified places as the place of occurrence of the external cause; Y93.89 Activity, other specified; Y99.8 Other external cause status
CPT/HCPCS: 73562; 73610; 99284

== ENCOUNTER 2023-02-01 09:00 | Emergency (ER) | payer OTHER, MEDICAID ==
[~2023-02-01] VITALS: Ht 157.5 cm; Wt 111.6 kg
[2023-02-01 09:00] VITALS: BP 151/63
[~2023-02-01 09:00] MED LIST changes: +ACET-8905 PO; +IBUP-2213 PO
--- NOTE | 2023-02-01 09:05 | NUR ---
PT W/C ASSISTED TO BED 12
--- NOTE | 2023-02-01 09:17 | NUR ---
Note undone in EDM - 02/01/23 at 1001 by PHSEP 67YO FEMALE PT BIB DAUGHTER C/O R WRIST PAIN AND SWELLING X1WEEK. REPORTS ONSET S/P MECH FALL -[id number]. PAIN AT MOST ON MOVEMENT OR TOUCH. MILD SWELLING NOTED AT WRIST , <3 CAP REFILL THROUGHOUT. MILD SWELLING NOTED POSTERIOR R UPPER ARM. NO VISIBLE DEFORMITY. MILD RELIEF AFTER TYLENOL. PT AAOX4, HOB POSITIONED PER COMFORT. HX: DIABETES, HTN, OSTEOPOROSIS
--- NOTE | 2023-02-01 09:17 | NUR ---
67YO FEMALE PT BIB DAUGHTER C/O R WRIST PAIN AND SWELLING X1WEEK. REPORTS ONSET S/P MECH FALL -[id number]. PAIN AT MOST ON MOVEMENT OR TOUCH. MILD SWELLING NOTED AT WRIST , <3 CAP REFILL THROUGHOUT. MILD BRUISING NOTED POSTERIOR R UPPER ARM. NO VISIBLE DEFORMITY. MILD RELIEF AFTER TYLENOL. PT AAOX4, HOB POSITIONED PER COMFORT. HX: DIABETES, HTN, OSTEOPOROSIS NKA
--- NOTE | 2023-02-01 09:35 | NUR ---
xray at bedside
[2023-02-01] MEDS ORDERED: NAPR-1704 PO (10:35)
[2023-02-01] MEDS ORDERED: AZITHROMYCIN 500 MG in DEXTROSE 5% 250 ML IV ONE (10:35)
[2023-02-01] MEDS ORDERED: ACET-10509 PO (10:36)
--- NOTE | 2023-02-01 10:40 | NUR ---
NIRALI WRAP X 1 TO L WRIST + CMS
[2023-02-01 10:41] VITALS: BP 142/63
--- NOTE | 2023-02-01 10:41 | NUR ---
Patient discharged with v/s stable. Written and verbal after care instructions FOR WRIST SPRAIN given and explained. Patient alert, oriented and verbalized understanding of instructions. Ambulatory with steady gait. All questions addressed prior to discharge. ID band removed. Patient advised to follow up with PMD. Rx of TYLENOL XTRA STRENGTH given. Opportunity to ask questions provided and answered.
--- NOTE | 2023-02-01 10:44 | NUR ---
The patient's care was reviewed and supervised by La Ward 04 ED, RN.
== END 2023-02-01 10:41 | disposition home or self-care (01) ==
LOC: MED 09:00
DX: S63.501A Unspecified sprain of right wrist, initial encounter (principal); E11.9 Type 2 diabetes mellitus without complications; I10 Essential (primary) hypertension; E78.5 Hyperlipidemia, unspecified; N19 Unspecified kidney failure; Z79.1 Long term (current) use of non-steroidal anti-inflammatories (NSAID); Z79.899 Other long term (current) drug therapy; Z79.4 Long term (current) use of insulin; W18.39XA Other fall on same level, initial encounter; Y92.89 Other specified places as the place of occurrence of the external cause; Y93.89 Activity, other specified; Y99.8 Other external cause status
CPT/HCPCS: 73110; 99283